=== PATIENT | female | born 1980 | race Caucasian/White ===

== ENCOUNTER → 2016-12-08 | Outpatient (CLI) | payer BC ==
--- NOTE | 2016-12-08 10:01 | MM ---
Reason for exam: clinical finding. Baseline mammogram. History: Patient is nulliparous. Family history of breast cancer in paternal grandmother. Took hormonal contraceptives for 1 year beginning at age 32. Physical Findings: Nurse did not find any significant physical abnormalities on exam. MG Diagnostic Mammo w CAD ANTONIO Bilateral CC and MLO view(s) were taken. The breast tissue is heterogeneously dense. This may lower the sensitivity of mammography. No suspicious calcifications or masses are seen. These results were verbally communicated with the patient and result sheet given to the patient on 12/08/16. ASSESSMENT: Incomplete: need additional imaging evaluation, BI-RAD 0 RECOMMENDATION: Ultrasound of the right breast. Manage patient on a clinical basis.
--- NOTE | 2016-12-08 10:02 | USB ---
Reason for exam: additional evaluation requested from abnormal screening. History: Patient is nulliparous. Family history of breast cancer in paternal grandmother. Took hormonal contraceptives for 1 year beginning at age 32. US Breast RT Right breast ultrasound includes all four quadrants, the retroareolar region and axilla. Finding demonstrates no cystic or solid lesion seen. These results were verbally communicated with the patient and result sheet given to the patient on 12/08/16. ASSESSMENT: Negative, BI-RAD 1 RECOMMENDATION: Routine screening mammogram of both breasts at age 38. Manage patient on a clinical basis.
== END | disposition home or self-care (01) ==
LOC: RADMAMWWP 08:54
PROVIDERS: ATTEND Internal Medicine
DX: N63 Unspecified lump in breast (principal); N64.4 Mastodynia
CPT/HCPCS: 76641; G0204

== ENCOUNTER → 2020-08-29 | Outpatient (CLI) | payer MEDICAID ==
--- NOTE | 2020-08-29 11:55 | CT ---
EXAMINATION TYPE: CT sinus wo con DATE OF EXAM: 08/29/2020 COMPARISON: None HISTORY: Chronic sinusitis. Pain behind left eye. Stuffiness. CT DLP: 641.6 mGycm. Automated Exposure Control for Dose Reduction was Utilized. TECHNIQUE: CT scan of the sinuses is performed without contrast, axial images are obtained, coronal r eformatted images are also reviewed. FINDINGS: The paranasal sinuses including the frontal, ethmoid, sphenoid, and maxillary sinuses bila terally are well-aerated without abnormal opacification. The ostiomeatal complex is patent bilateral ly on the coronal images. Small bilateral tierney bullosa greater on the right. Visualized portion of mastoid air cells show no abnormal opacification. The globes are intact bilate rally. IMPRESSION: The sinuses are clear and the ostiomeatal complex is patent bilaterally.
== END | disposition home or self-care (01) ==
LOC: RADCTMAIN 08:24
PROVIDERS: ATTEND Otolaryngology
DX: J32.9 Chronic sinusitis, unspecified (principal)
CPT/HCPCS: 70486

== ENCOUNTER 2020-10-09 09:55 | Day surgery (SDC) | payer MEDICAID ==
[2020-10-07 13:51] VITALS: BMI 25.1
[~2020-10-09 09:55] MED LIST: DEXAMETHASONE SOD PHOSPHATE 4 MG/ML 1 ML VIAL IV ONE; DEXAMETHASONE SOD PHOSPHATE 4 MG/ML 1 ML VIAL IV PRN; FAMOTIDINE 20 MG/2 ML VIAL IV PRN; HYDROmorphone 0.5 MG/0.5 ML SYRINGE IVP PRN; LACTATED RINGERS 1,000 ML IV SCH; LIDOCAINE 1% (10MG/ML) FOR IV START INTRADERMA PRN; ONDANSETRON 4 MG/2 ML VIAL IVP ONE; ONDANSETRON 4 MG/2 ML VIAL IVP PRN; OXYMETAZOLINE 0.05% NASL SPRAY 1 SPRAY BOTTLE EA NOSTRIL PRN; SCOPOLAMINE 1.5MG/72HR PATCH TRANSDERM ONE
[2020-10-09 10:20] VITALS: RESP 16
[2020-10-09] MEDS ORDERED: LIDOCAINE 1%-EPI 1:100,000 20 ML VIAL SUBMUCOSAL ONE ×2 (10:58→11:41)
[2020-10-09] MEDS ORDERED: fentaNYL (PF) 50 MCG/ML 2 ML AMP ONE (10:59)
[2020-10-09] MEDS ORDERED: SUCCINYLCHOLINE CHLORIDE 100 MG/5 ML SYR IV ONE (10:59)
[2020-10-09] MEDS ORDERED: ePHEDrine SULFATE/0.9% NACL/PF 50 MG/5 ML SYRINGE IV ONE (10:59)
[2020-10-09] MEDS ORDERED: PROPOFOL 10 MG/ML 20 ML VIAL IV ONE (10:59)
[2020-10-09] MEDS ORDERED: MIDAZOLAM 2 MG/2 ML VIAL ONE (10:59)
[2020-10-09] MEDS ORDERED: LIDOCAINE 1% INJ 10MG/ML (20 ML MDV) ONE (10:59)
[2020-10-09] MEDS ORDERED: FLUORESCEIN STRIPS 1 MG STRIP MISCELLANE ONE (11:35)
[2020-10-09] MEDS ORDERED: BALANCED SALT IRRIG SOLN COMB2 15 ML IRRIG.SOLN IRRIGATION ONE (11:39)
--- NOTE | 2020-10-09 11:47 | P.OP ---
Date of Procedure: 10/09/20 Preoperative Diagnosis: Left inferior meatus soft tissue mass Postoperative Diagnosis: Same Procedure(s) Performed: Left nasal endoscopy with exploration of left inferior meatus and excision left inferior meatus mass Anesthesia: VARINDER Surgeon: Alex Davis Estimated Blood Loss (ml): 10 Pathology: other (Left inferior meatus mass) Condition: stable Disposition: PACU Indications for Procedure: This 40-year-old white female who initially presented for left-sided epiphora. CT revealed a soft tissue mass in the left inferior meatus with dilatation of the left nasal lacrimal duct. Her epiphora over has actually improved Operative Findings: Left inferior meatus showed a rounded pink mucosal mass approximate 13 mm and upon removing the overlying mucosa there was approximately 1.5 x 1 cm yellow sebaceous appearing material which was removed and then approximately 1 mL of mucoid drainage which appeared to arise and come from the nasal lacrimal duct. The remainder of the abnormal appearing mucosa was then debrided with up-biting Blakesley forceps. This appeared to be consistent with a cyst at the distal aspect of the left nasal lacrimal duct Description of Procedure: The patient was brought in the operative suite and placed in a supine position. The patient underwent induction of general anesthesia with oral endotracheal intubation with difficulty. The patient was prepped and draped in usual aseptic fashion. 1% lidocaine with [id number] epinephrine was infused submucosally at the anterior tip of the left middle turbinate. This was left to work for 7 minutes vasoconstrictive effect. The inferior turbinate was then infractured with the [place] elevator. Nasal endoscopy with a 0 and 25 endoscope utilized to visualize the lesion and photos were taken. This was then unroofed with up- biting Blakesley forceps revealing yellow solid sebaceous appearing material and approximate 1 mL of mucoid drainage then drained which appeared to drain from the nasal lacrimal duct. The remainder of the abnormal appearing mucosa was then debrided with Blakesley forceps. Hemostasis was noted to be good. The middle turbinate was then placed back into its mechoopda position with [place] elevator. The patient was allowed to emerge from general anesthesia having tolerated procedure well was extubated in the operating suite and transferred to postop recovery area in satisfactory condition.
[2020-10-09 11:55] VITALS: TEMP 97.5
[2020-10-09 13:29] VITALS: BP 115/63; PULSE 81
== END 2020-10-09 13:35 | disposition home or self-care (01) ==
LOC: OR 09:55
PROVIDERS: ATTEND Otolaryngology
DX: J33.8 Other polyp of sinus (principal); J31.0 Chronic rhinitis; Z88.8 Allergy status to other drugs, medicaments and biological substances; F32.9 Major depressive disorder, single episode, unspecified; K92.9 Disease of digestive system, unspecified; F31.9 Bipolar disorder, unspecified; Z82.49 Family history of ischemic heart disease and other diseases of the circulatory system; Z82.5 Family history of asthma and other chronic lower respiratory diseases; Z82.61 Family history of arthritis; Z83.79 Family history of other diseases of the digestive system; Z83.42 Family history of familial hypercholesterolemia; Z81.1 Family history of alcohol abuse and dependence; Z82.62 Family history of osteoporosis; Z98.890 Other specified postprocedural states; Z79.899 Other long term (current) drug therapy; Z87.891 Personal history of nicotine dependence; J30.2 Other seasonal allergic rhinitis
CPT/HCPCS: 81025; 88305; 31237; J2250; J1100; J2405; J0690; J2001; J3010; J0330; J2704

== ENCOUNTER → 2020-12-12 | Outpatient (CLI) | payer MEDICAID ==
--- NOTE | 2020-12-12 10:36 | FL ---
EXAMINATION TYPE: FL barium swallow DATE OF EXAM: 12/12/2020 CLINICAL INDICATION: 40-year-old female with food sticking in the mid chest, R1 3.10 dysphagia. COMPARISON: None Total Fluoroscopy Time: 2 minutes 42 seconds 39 images obtained. FINDINGS: The swallowing mechanism is normal and hypopharyngeal anatomy is preserved. The cervical and thoracic portions have a normal course and caliber. Very mild dysmotility distal eso phagus with some residual contrast remains above the GE junction and shows delayed clearance. The muc faizan is normal and no persistent filling defect is encountered. There is a tiny sliding hiatal hernia demonstrated. No gastroesophageal reflux is identified with Malia sherman or positional maneuvers. IMPRESSION: 1. Very mild distal esophageal dysmotility with a small amount of residual contrast that remains abov e the GE junction. 2. Tiny sliding hiatal hernia. No gastroesophageal reflux is visualized during the course of the exam . 3. Otherwise, unremarkable esophagram.
== END | disposition home or self-care (01) ==
LOC: RADUSWWP 08:55
PROVIDERS: ATTEND Family Medicine
DX: K44.9 Diaphragmatic hernia without obstruction or gangrene (principal); K22.4 Dyskinesia of esophagus
CPT/HCPCS: 74220

== ENCOUNTER → 2020-12-26 | Outpatient (CLI) | payer MEDICAID ==
[2020-12-27 01:42] LABS: Potassium 4.9 mmol/L (3.5-5.5)
== END | disposition home or self-care (01) ==
LOC: LABWHC1 08:03
PROVIDERS: ATTEND Physician Assistant
DX: Z79.899 Other long term (current) drug therapy (principal)
CPT/HCPCS: 36415; 80051

== ENCOUNTER → 2023-12-27 | Outpatient (CLI) | payer MEDICAID ==
--- NOTE | 2023-12-29 17:02 | MM ---
Reason for Exam: Screening (asymptomatic). Last mammogram was performed 7 year(s) and 1 month(s) ago. Patient History: Menarche at age 10. Patient has no children. Premenopausal. Hormonal Contraceptives for 1 year from age 32 until age 33. Paternal grandmother had breast cancer. Last menstrual period: 12/06/2023 Risk Values: Catrina 5 year model risk: 0.9%. NCI Lifetime model risk: 10.6%. Prior Study Comparison: 12/08/2016 Bilateral Diagnostic Mammogram, [facility]. Tissue Density: The breasts are heterogeneously dense, which may obscure small masses. Findings: Analyzed By CAD. Diffuse increasing density including what weight loss compared to the patient's 2017 exam. Focal asymmetry posterior upper outer quadrant left breast has overall increased likely due to the weight loss. There is a new group of microcalcifications in this region as well for which further magnification views are recommended. Overall Assessment: Incomplete: need additional imaging evaluation, BI-RAD 0 Management: Special View Mammogram of the left breast. Include magnification CC, magnified lateral, and 3-D lateral views for the calcifications. The associated large area of density here can be concurrently assessed on the magnification views. Ultrasound for any palpable abnormality in the left breast. [facility] will attempt to contact patient to return for supplemental views and ultrasound if indicated. Electronically signed and approved by: Kyle Patricio M.D. Radiologist
== END | disposition home or self-care (01) ==
LOC: RADMAMWWP 15:24
PROVIDERS: ATTEND Family Medicine
DX: Z12.31 Encounter for screening mammogram for malignant neoplasm of breast
CPT/HCPCS: 77067

== ENCOUNTER → 2024-01-05 | Outpatient (CLI) | payer MEDICAID ==
--- NOTE | 2024-01-05 21:53 | MM ---
Reason for Exam: Additional evaluation requested from abnormal screening. Last screening mammogram was performed less than 1 month ago. Patient History: Menarche at age 10. Patient has no children. Premenopausal. Hormonal Contraceptives for 1 year from age 32 until age 33. Paternal grandmother had breast cancer. Risk Values: Catrina 5 year model risk: 0.9%. NCI Lifetime model risk: 10.6%. Prior Study Comparison: 12/08/2016 Bilateral Diagnostic Mammogram, [facility]. 12/27/2023 Bilateral MG screening mammo w CAD, [facility]. Tissue Density: Left: The breasts are extremely dense, which lowers the sensitivity of mammography. Findings: Analyzed By CAD. Under compression the area disperses. Subtle underlying nodularity is not entirely excluded rate ultrasound recommended for additional workup. In the upper outer quadrant 12 cm from the nipple there are multiple tiny calcifications. These are considered suspicious, stereotactic core biopsy is recommended. Overall Assessment: Incomplete: need additional imaging evaluation, BI-RAD 0 Management: Diagnostic Breast Ultrasound of the left breast. Stereotactic Core Biopsy of the left breast. A negative mammogram report should not preclude additional follow up of suspicious palpable abnormalities. Patient should continue monthly self breast exam. A clinical breast exam by your physician is recommended on an annual basis and results should be correlated with mammographic findings. Note on Catrina scores and lifetime risk: 1. A Catrina score greater than 3% is considered moderate risk. If this is the case, consider specialist referral to assess eligibility for a risk reducing agent. 2. If overall lifetime risk for the development of breast cancer is 20% or higher, the patient may qualify for future screening with alternating mammogram and breast MRI. [facility], , 01/05/2024 9:51 PM. Electronically signed and approved by: Billy Tompkins D.O. Radiologis
--- NOTE | 2024-01-07 08:32 | USB ---
Reason for Exam: Additional evaluation requested from abnormal screening. Patient History: Menarche at age 10. Patient has no children. Premenopausal. Hormonal Contraceptives for 1 year from age 32 until age 33. Paternal grandmother had breast cancer. Risk Values: Catrina 5 year model risk: 0.9%. NCI Lifetime model risk: 10.6%. Technique: Method: Targeted. Prior Study Comparison: 12/08/2016 Bilateral Diagnostic Mammogram, [facility]. 12/27/2023 Bilateral MG screening mammo w CAD, [facility]. Findings: The upper outer quadrant of the left breast, the axilla of the left breast and the retroareolar of the left breast were scanned. No solid or cystic masses are identified. No discrete mass in the upper outer quadrant correlate with the mammographic findings. Overall Assessment: Negative, BI-RAD 1 Management: Stereotactic Core Biopsy of the left breast. A clinical breast exam by your physician is recommended on an annual basis and results should be correlated with mammographic findings. This exam should not preclude additional follow-up of suspicious palpable abnormalities. Results were given to the patient verbally at the time of exam. [facility], , 01/07/2024 8:28 AM. Electronically signed and approved by: Billy Tompkins D.O. Radiologis
== END | disposition home or self-care (01) ==
LOC: RADMAMWWP 14:12
PROVIDERS: ATTEND Family Medicine
CPT/HCPCS: 77061; 77065

== ENCOUNTER → 2024-01-17 | Day surgery (SDC) | payer MEDICAID ==
[~2024-01-17] MED LIST changes: +ALPRAZolam 0.25 MG TAB PO PRN; +ALPRAZolam 0.5 MG TAB PO PRN; -DEXAMETHASONE SOD PHOSPHATE 4 MG/ML 1 ML VIAL IV ONE; -DEXAMETHASONE SOD PHOSPHATE 4 MG/ML 1 ML VIAL IV PRN; -FAMOTIDINE 20 MG/2 ML VIAL IV PRN; -HYDROmorphone 0.5 MG/0.5 ML SYRINGE IVP PRN; -LACTATED RINGERS 1,000 ML IV SCH; -LIDOCAINE 1% (10MG/ML) FOR IV START INTRADERMA PRN; -ONDANSETRON 4 MG/2 ML VIAL IVP ONE; -ONDANSETRON 4 MG/2 ML VIAL IVP PRN; -OXYMETAZOLINE 0.05% NASL SPRAY 1 SPRAY BOTTLE EA NOSTRIL PRN; -SCOPOLAMINE 1.5MG/72HR PATCH TRANSDERM ONE
[2024-01-17 07:45] VITALS: RESP 16; TEMP 97.9
[2024-01-17 08:31] VITALS: BP 111/75; PULSE 69
--- NOTE | 2024-01-21 12:43 | MM ---
Risk Values: Catrina 5 year model risk: 0.9%. NCI Lifetime model risk: 10.6%. Prior Study Comparison: 12/08/2016 Bilateral Diagnostic Mammogram, [facility]. 12/27/2023 Bilateral MG screening mammo w CAD, [facility]. 01/05/2024 Left MG 3D work up w/cad , [facility]. Pathology Description: Location: upper outer quadrant. Marker Left Behind. Specimen Radiograph. Approach: CC FA Needle Type: Eviva Cores: 7 Skin Nicks: 1 Gauge: 9 The microcalcifications in question within the left breast were targeted by the undersigned. Procedure was performed by the undersigned. Informed consent was obtained and all of the patients questions were answered. The standard sterile technique was utilized and appropriate local anesthesia was obtained with 1% licocaine. Mammotome probe was advanced and multiple core samples were obtained and sent to pathology for interpretation. Microclip marker was deployed at the site of biopsy. Post procedural mammogram demonstrates appropriate deployment of radiopaque clip marker. The patient tolerated the procedure well and left the department in stable condition. Pathology results are pending. Impression: Successful stereotactic core biopsy left breast. Pathology Results: Result: Benign, Fibrocystic change. Pathology and radiology were reviewed. Findings are concordant. LEFT BREAST, STEREOTACTIC CORE BIOPSY: Fibrocystic change with columnar cell change, apocrine metaplasia, focal microcalcification and fibroadenomatoid stromal hyperplasia. 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 Negative for malignancy. Overall Assessment: Benign Management: Diagnostic Mammogram of the left breast in 6 months. Electronically signed and approved by: Mukul Olivier M.D. Radiologis
== END ==
LOC: RADMAMWWP 07:31
PROVIDERS: ATTEND Family Medicine
DX: R92.8 Other abnormal and inconclusive findings on diagnostic imaging of breast
CPT/HCPCS: 88305

== ENCOUNTER → 2024-08-11 | Outpatient (CLI) | payer MEDICAID ==
--- NOTE | 2024-08-11 11:49 | MM ---
Reason for Exam: Follow-up at short interval from prior study. Last screening mammogram was performed 7 month(s) ago. Patient History: Menarche at age 10. Patient has no children. Premenopausal. Hormonal Contraceptives for 1 year from age 32 until age 33. 01/17/2024, Benign MG stereo VAD BX LT on the left side. Paternal grandmother had breast cancer, age 55. Risk Values: Catrina 5 year model risk: 1.4%. NCI Lifetime model risk: 12.5%. Prior Study Comparison: 12/08/2016 Bilateral Diagnostic Mammogram, [facility]. 12/27/2023 Bilateral MG screening mammo w CAD, [facility]. 01/05/2024 Left MG 3D work up w/cad LT, [facility]. Tissue Density: Left: The breasts are heterogeneously dense, which may obscure small masses. Findings: Analyzed By CAD. No residual or new microcalcifications left breast. No masses or distortion. Overall Assessment: Benign, BI-RAD 2 Management: Screening Mammogram of both breasts in 6 months. . Results were given to the patient verbally at the time of exam. Patient should continue monthly self-breast exams. A clinical breast exam by your physician is recommended on an annual basis. This exam should not preclude additional follow-up of suspicious palpable abnormalities. Note on Catrina scores and lifetime risk: 1. A Catrina score greater than 3% is considered moderate risk. If this is the case, consider specialist referral to assess eligibility for a risk reducing agent. 2. If overall lifetime risk for the development of breast cancer is 20% or higher, the patient may qualify for future screening with alternating mammogram and breast MRI. [facility], , 08/11/2024 11:46 AM. Electronically signed and approved by: Mukul Olivier M.D. Radiologis
== END | disposition home or self-care (01) ==
LOC: RADMAMWWP 11:25
PROVIDERS: ATTEND Family Medicine
DX: R92.8 Other abnormal and inconclusive findings on diagnostic imaging of breast (principal); R92.332 Mammographic heterogeneous density, left breast; Z92.0 Personal history of contraception; Z80.3 Family history of malignant neoplasm of breast
CPT/HCPCS: 77061; 77065